=== PATIENT | female | born 1960 | race Caucasian/White ===

== ENCOUNTER 2017-01-03 08:05 | Day surgery (SDC) | payer OTHER ==
[2017-01-03] MEDS ORDERED: Propofol 10 mg/ml Inj (20 ML) ONE (09:24)
[2017-01-03] MEDS ORDERED: Lactated Ringer's 1,000 ML IV ONE (09:25)
--- NOTE | 2017-01-03 09:27 | CP.SDSHP ---
Same Day Surgery H & P - History Proposed Procedure: colonoscopy Pre-Op Diagnosis: rectal bleeding - Previous Medical/Surgical History Pulmonary: Asthma Neuro: Headaches, Other (anxiety, ) Misc: Other (DJD, anxiety/depression, osteoporosis, hypercholesterolemia) Previous Surgical History: PIERRE/USO. Bladder suspension - Allergies Allergies: Allergies No Known Allergies Allergy (Verified 01/03/17 08:49) - Physical Exam Vital Signs: Vital Signs 01/03/17 08:35 Temperature 98.7 F Pulse Rate 80 Respiratory 20 Rate Blood Pressure 140/90 O2 Sat by Pulse 100 Oximetry Mental Status: Alert & Oriented x3 Neuro: WNL Heart: WNL Lungs: WNL GI: WNL - Impression Impression: rectal bleeding/hematochezia Pt. Evaluated Today:Candidate for Anesthesia & Procedure: Yes - Date & Time Date: 01/03/17 Time: 09:27 Short Stay Discharge - Short Stay Discharge Admitting Diagnosis/Reason for Visit: CHANGE IN BOWEL HABIT, CONSTIPATION UNSPECIFIED, L Disposition: HOME/ ROUTINE
[2017-01-03 11:13] VITALS: TEMP 98.6
[2017-01-03 11:29] VITALS: BP 123/78; PULSE 80; RESP 17; O2SAT 96
== END 2017-01-03 11:00 | disposition home or self-care (01) ==
LOC: C.ENDO 08:05
PROVIDERS: ATTEND Internal Medicine Gastroenterology
DX: K92.1 Melena (principal); K59.00 Constipation, unspecified; R10.32 Left lower quadrant pain; K64.8 Other hemorrhoids
CPT/HCPCS: 45378; J2704; J7120

== ENCOUNTER 2018-04-09 07:48 | Outpatient (CLI) | payer OTHER | END 2018-04-09 07:49 | disposition home or self-care (01) | LOC: C.LAB 07:48 | DX: M06.9 Rheumatoid arthritis, unspecified (principal); D64.9 Anemia, unspecified ==